=== PATIENT | female | born 2000 | race Asian ===

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

== ENCOUNTER 2022-07-20 13:30 | Emergency (ER) | payer BC, OTHER ==
[~2022-07-20] VITALS: Ht 162.6 cm; Wt 63.6 kg
[2022-07-20 13:31] VITALS: BP 120/74
[2022-07-20] MEDS ORDERED: MACR100C43 PO (16:20)
== END 2022-07-20 16:51 | disposition home or self-care (01) ==
LOC: M ED 13:30
DX: N39.0 Urinary tract infection, site not specified (principal); F17.200 Nicotine dependence, unspecified, uncomplicated

== ENCOUNTER → 2023-03-05 | Outpatient (REF) | payer BC, OTHER ==
[~2023-03-05] MED LIST: MACR100C43 PO
[2023-03-05 18:35] LABS: GC DNA AMPLIFICATION NEGATIVE (NEGATIVE)
== END ==
LOC: M LAB REF 16:08
PROVIDERS: ATTEND Physician Assistant
DX: Z11.3 Encounter for screening for infections with a predominantly sexual mode of transmission (principal)

== ENCOUNTER → 2024-03-16 | Outpatient (REF) | payer OTHER, BC ==
[2024-03-22 09:57] LABS: HPV APTIMA NOT DETECTED (NOT DETECT)
== END ==
LOC: M LAB REF 16:21
PROVIDERS: ATTEND Physician Assistant
DX: Z12.4 Encounter for screening for malignant neoplasm of cervix (principal); Z11.3 Encounter for screening for infections with a predominantly sexual mode of transmission
CPT/HCPCS: 87624; G0123

== ENCOUNTER → 2024-10-18 | Outpatient (CLI) | payer BC | LOC: M RAD 09:26 | PROVIDERS: ATTEND Nurse Practitioner Family | DX: N20.0 Calculus of kidney (principal) ==

== ENCOUNTER → 2024-10-18 | Outpatient (CLI) | payer BC | LOC: M PLAIMG 10:05 | PROVIDERS: ATTEND Nurse Practitioner Family | DX: N20.0 Calculus of kidney (principal) ==